=== PATIENT | male | born 1955 | race Caucasian/White ===

== ENCOUNTER 2023-01-12 13:56 | Emergency (ER) | payer MEDICARE, OTHER ==
[2023-01-12] MEDS ORDERED: oxyCODONE 5 MG Tab PO ONE (14:21)
[2023-01-12] MEDS ORDERED: Lidocaine 4% 1 each Patch TOP PRN (14:21)
== END 2023-01-12 16:20 | disposition home or self-care (01) ==
LOC: MW.ED 13:56
DX: M67.911 Unspecified disorder of synovium and tendon, right shoulder (principal)
CPT/HCPCS: 73030; 99283; A9270